=== PATIENT | male | born 1960 | race Caucasian/White ===

== ENCOUNTER 2022-10-23 10:04 | Emergency (ER) | payer BC, OTHER ==
[~2022-10-23] VITALS: Ht 177.8 cm; Wt 93.2 kg
[~2022-10-23 10:04] MED LIST: CLIN-97 PO
[2022-10-23 10:19] VITALS: BP 135/83
[2022-10-23 10:51] LABS: CLARITY,URINE CLOUDY (Clear); COLOR,URINE RED (Yellow)
[2022-10-23 10:53] LABS: UA COLLECTION TYPE CLN CATCH MIDSTREAM
[2022-10-23 11:00] LABS: RBC,URINE TNTC /HPF (0-2); WBC,URINE 50-100 /HPF (0-4)
[2022-10-23 11:01] LABS: BACTERIA,URINE FEW /HPF (Neg); MUCUS STRANDS NONE SEEN /LPF (Neg); SQUAMOUS EPITHELIAL CELL,UR FEW /LPF (FEW)
[2022-10-23] MEDS ORDERED: CEPH-585 PO (12:02)
== END 2022-10-23 12:17 | disposition home or self-care (01) ==
LOC: ER 10:04
DX: N39.0 Urinary tract infection, site not specified (principal); R31.9 Hematuria, unspecified; Z79.899 Other long term (current) drug therapy
CPT/HCPCS: 81001; 87077; 87088; 87186; 99283

== ENCOUNTER 2023-12-14 07:25 | Emergency (ER) | payer BC ==
[~2023-12-14] VITALS: Ht 177.8 cm; Wt 93.8 kg
[2023-12-14 07:29] VITALS: TEMP 99.2
[2023-12-14 08:49] LABS: ALBUMIN 3.4 G/DL (3.4-5.0); ANION GAP 10 (8-16); BLOOD UREA NITROGEN 23 MG/DL (7-18); BUN/CREATININE RATIO 18.3 (10.0-20.0); CALCIUM 8.8 MG/DL (8.5-10.1); CHLORIDE 104 MMOL/L (99-107); CREATININE 1.26 MG/DL (0.60-1.10); GLUCOSE 178 MG/DL (70-104); MAGNESIUM 2.2 MG/DL (1.5-2.4); POTASSIUM 4.2 MMOL/L (3.5-5.1); SODIUM 138 MMOL/L (135-145); TOTAL CARBON DIOXIDE 24.5 MMOL/L (24-32); eCRCL 62 ML/MIN; eGFR 58 ML/MIN
[2023-12-14] MEDS: piperacillin/tazo 3.375gm/50ml 50 ML IV ONE (08:53)
[2023-12-14] MEDS ORDERED: EMPA25TA PO (09:00)
[2023-12-14 09:05] LABS: BASOPHILS % (AUTO) 0.2 % (0-1); EOSINOPHILS # (AUTO) 0.1 X10'3 (0-0.9); EOSINOPHILS % (AUTO) 0.7 % (0-6); LYMPHOCYTES # (AUTO) 1.7 X10'3 (1.1-4.8); LYMPHOCYTES % (AUTO) 13.8 % (21-51); MEAN CORPUSCULAR HEMOGLOBIN 29.7 PG (27.0-31.0); MEAN CORPUSCULAR HGB CONC 33.3 g/dL (33.0-36.5); MEAN CORPUSCULAR VOLUME 88.9 FL (78-98); MEAN PLATELET VOLUME 8.7 FL (7.4-10.4); MONOCYTES # (AUTO) 1.2 X10'3 (0-0.9); MONOCYTES % (AUTO) 9.6 % (2-12); NEUTROPHILS # (AUTO) 9.2 X10'3 (1.8-7.7); NEUTROPHILS % (AUTO) 75.7 % (42-75); PLATELET COUNT 227 X10'3 (140-440); RED CELL DISTRIBUTION WIDTH 13.8 % (11.5-14.5); WHITE BLOOD COUNT 12.2 X10'3 (4.5-11.0)
[2023-12-14] MEDS: probenecid 500mg tablet PO ONE (09:06)
[2023-12-14 09:13] LABS: BILIRUBIN,URINE NEGATIVE (Neg); CLARITY,URINE CLEAR (Clear); COLOR,URINE YELLOW (Yellow); GLUCOSE, URINE >=1000 mg/dl (Neg); KETONES,URINE TRACE mg/dl (Neg); LEUKOCYTE ESTERASE ,URINE NEGATIVE (Neg); NITRITES, URINE NEGATIVE (Neg); OCCULT BLOOD,URINE TRACE-INTACT (Neg); PROTEIN,URINE TRACE mg/dl (Neg)
[2023-12-14 09:20] LABS: UA COLLECTION TYPE CLN CATCH MIDSTREAM
[2023-12-14 09:36] LABS: BACTERIA,URINE NONE SEEN /HPF (Neg); RBC,URINE 0-2 /HPF (0-2); SQUAMOUS EPITHELIAL CELL,UR FEW /LPF (FEW); WBC,URINE 0-4 /HPF (0-4)
[2023-12-14] MEDS ORDERED: LEVO-65 PO (11:21)
[2023-12-14 11:45] VITALS: BP 150/86; PULSE 78; RESP 14; O2SAT 100
== END 2023-12-14 11:53 | disposition home or self-care (01) ==
LOC: ER 07:26
DX: L03.115 Cellulitis of right lower limb (principal); E11.9 Type 2 diabetes mellitus without complications; Z79.899 Other long term (current) drug therapy; Z79.2 Long term (current) use of antibiotics
CPT/HCPCS: 36415; 73620; 80048; 81001; 83735; 84145; 85025; 96365; 99284; J2543; L3260

== ENCOUNTER 2023-12-20 15:35 | Inpatient (IN) | payer BC ==
[~2023-12-20] VITALS: Ht 172.7 cm; Wt 70.0 kg
[~2023-12-20 15:35] MED LIST changes: -CLIN-97 PO; +EMPA25TA PO; +LEVO-65 PO
[2023-12-20] MEDS ORDERED: iohexol 300mg/ml 100ml inj. ONE (16:41)
[2023-12-20 17:13] LABS: BASOPHILS % (AUTO) 0.3 % (0-1); EOSINOPHILS # (AUTO) 0.2 X10'3 (0-0.9); EOSINOPHILS % (AUTO) 1.4 % (0-6); HEMOGLOBIN 14.8 g/dl (14.0-17.9); LYMPHOCYTES # (AUTO) 1.5 X10'3 (1.1-4.8); LYMPHOCYTES % (AUTO) 11.9 % (21-51); MEAN CORPUSCULAR HEMOGLOBIN 30.2 PG (27.0-31.0); MEAN CORPUSCULAR HGB CONC 33.6 g/dL (33.0-36.5); MEAN CORPUSCULAR VOLUME 89.9 FL (78-98); MEAN PLATELET VOLUME 7.7 FL (7.4-10.4); MONOCYTES # (AUTO) 1.2 X10'3 (0-0.9); MONOCYTES % (AUTO) 9.6 % (2-12); NEUTROPHILS # (AUTO) 9.4 X10'3 (1.8-7.7); NEUTROPHILS % (AUTO) 76.8 % (42-75); PLATELET COUNT 323 X10'3 (140-440); RED CELL DISTRIBUTION WIDTH 13.3 % (11.5-14.5); WHITE BLOOD COUNT 12.2 X10'3 (4.5-11.0)
[2023-12-20 17:36] LABS: APTT 28 SECONDS (22-32); INR 1.1 INR; PROTHROMBIN TIME 12.1 SECONDS (9.0-12.0)
[2023-12-20 17:47] LABS: ALANINE AMINOTRANSFERASE 64 U/L (12-78); ALBUMIN 2.7 G/DL (3.4-5.0); ALBUMIN/GLOBULIN RATIO 0.5 (1.1-1.5); ALKALINE PHOSPHATASE 63 IU/L (46-116); ANION GAP 8 (8-16); ASPARTATE AMINO TRANSFERASE 38 U/L (10-37); BILIRUBIN,TOTAL 0.5 MG/DL (0.1-1.0); BLOOD UREA NITROGEN 21 MG/DL (7-18); C-REACTIVE PROTEIN 10.49 MG/DL (0.0-0.5); CALCIUM 8.6 MG/DL (8.5-10.1); CHLORIDE 101 MMOL/L (99-107); CREATININE 1.75 MG/DL (0.60-1.10); GLUCOSE 242 MG/DL (70-104); SODIUM 134 MMOL/L (135-145); TOTAL CARBON DIOXIDE 24.6 MMOL/L (24-32); eCRCL 42 ML/MIN; eGFR 40 ML/MIN
[2023-12-20] MEDS: TETanus/Pertussis (Acell)/Diphther VAC/PF (Tdap-Adult) 0.5ml syringe IMVAC ONE (18:08)
[2023-12-20] MEDS: vancomycin/NS 1 GM ADD-VANTAGE 250 ML IV STA (18:18)
[2023-12-20] MEDS: piperacillin/tazo 3.375gm/50ml 50 ML IV STA (19:00)
[2023-12-20] MEDS ORDERED: magnesium Cl slow-release 64mg tablet PO PRN (20:30)
[2023-12-20] MEDS ORDERED: magnesium hydroxide 30ml (MOM) UD suspension PO PRN (20:30)
[2023-12-20] MEDS ORDERED: ondansetron/PF 4mg/2ml inj IV PRN (20:30)
[2023-12-20] MEDS ORDERED: mag hydrox/Alum hydrox/simeth 30ml oral suspension PO PRN (20:30)
[2023-12-20] MEDS ORDERED: potassium Cl 20 mEq SR tablet PO PRN ×2 (20:30)
[2023-12-20] MEDS ORDERED: acetaminophen 325mg tablet PO PRN (20:30)
[2023-12-20] MEDS: ringers solution, lacted 1,000 ML IV SCH (20:35)
[2023-12-20] MEDS ORDERED: DEXTROSE 15 GM of carb/4 tabs (each vial/BOTTLE has 4 tablets) PO PRN ×2 (20:35)
[2023-12-20] MEDS ORDERED: glucagon, human recombinant 1mg kit SUBCUT PRN (20:35)
[2023-12-20] MEDS ORDERED: dextrose 50%-water 50ml dispensing syringe IV PRN ×2 (20:35)
[2023-12-20 20:48] LABS: HEMOGLOBIN A1C 7.3 % (4.5-6.2)
[2023-12-20] MEDS: INSULIN LISPRO 100 UNIT/ML INSULN.PEN MULTI-DOSE SQ SCH (21:00)
[2023-12-21 03:03] LABS: BASOPHILS % (AUTO) 0.4 % (0-1); EOSINOPHILS # (AUTO) 0.2 X10'3 (0-0.9); EOSINOPHILS % (AUTO) 1.9 % (0-6); HEMOGLOBIN 14.4 g/dl (14.0-17.9); LYMPHOCYTES # (AUTO) 2.1 X10'3 (1.1-4.8); LYMPHOCYTES % (AUTO) 17.2 % (21-51); MEAN CORPUSCULAR HGB CONC 33.5 g/dL (33.0-36.5); MEAN CORPUSCULAR VOLUME 89.4 FL (78-98); MEAN PLATELET VOLUME 7.6 FL (7.4-10.4); MONOCYTES # (AUTO) 1.1 X10'3 (0-0.9); MONOCYTES % (AUTO) 9.2 % (2-12); NEUTROPHILS # (AUTO) 8.6 X10'3 (1.8-7.7); NEUTROPHILS % (AUTO) 71.3 % (42-75); PLATELET COUNT 296 X10'3 (140-440); RED BLOOD COUNT 4.81 X10'6 (4.70-6.10); RED CELL DISTRIBUTION WIDTH 13.3 % (11.5-14.5); WHITE BLOOD COUNT 12.1 X10'3 (4.5-11.0)
[2023-12-21 03:19] LABS: ALANINE AMINOTRANSFERASE 60 U/L (12-78); ALBUMIN 2.5 G/DL (3.4-5.0); ALBUMIN/GLOBULIN RATIO 0.5 (1.1-1.5); ALKALINE PHOSPHATASE 60 IU/L (46-116); ANION GAP 10 (8-16); ASPARTATE AMINO TRANSFERASE 34 U/L (10-37); BILIRUBIN,TOTAL 0.7 MG/DL (0.1-1.0); BLOOD UREA NITROGEN 18 MG/DL (7-18); BUN/CREATININE RATIO 15.7 (10.0-20.0); CALCIUM 8.5 MG/DL (8.5-10.1); CHLORIDE 104 MMOL/L (99-107); CHOLESTEROL 184 MG/DL (0-200); CREATININE 1.15 MG/DL (0.60-1.10); GLUCOSE 125 MG/DL (70-104); HDL CHOLESTEROL 30 MG/DL (35-60); MAGNESIUM 2.1 MG/DL (1.5-2.4); PHOSPHORUS 3.3 MG/DL (2.3-4.5); POTASSIUM 3.7 MMOL/L (3.5-5.1); SODIUM 137 MMOL/L (135-145); TOTAL CARBON DIOXIDE 23.5 MMOL/L (24-32); TOTAL PROTEIN 7.4 G/DL (6.4-8.2); eCRCL 64 ML/MIN; eGFR 64 ML/MIN
[2023-12-21 03:20] LABS: CHOL/HDL RATIO 6.1 (0.00-4.99); LDL CHOLESTEROL 130 MG/DL (50-100); TRIGLYCERIDES 98 MG/DL (20-135)
[2023-12-21] MEDS: piperacillin/tazo 3.375gm/50ml 50 ML IV SCH (04:37)
[2023-12-21] MEDS ORDERED: vancomycin/NS 1 GM ADD-VANTAGE 250 ML X 1 DOSE IV SCH (06:00)
[2023-12-21] MEDS: vancomycin/NS 1 GM ADD-VANTAGE 250 ML X 1 DOSE IV SCH (07:00)
[2023-12-21 08:45] VITALS: BP 145/87; PULSE 67; RESP 16; TEMP 97.4; O2SAT 97
[2023-12-21] MEDS: docusate sod 100mg capsule PO SCH (09:09)
[2023-12-21] MEDS: heparin, porcine 5000 units/ml vial SQ SCH (09:09)
[2023-12-21] MEDS ORDERED: LOSA-415 PO (09:44)
[2023-12-21 10:00] VITALS: BP 145/87; PULSE 67; RESP 16; TEMP 96.8; O2SAT 97
[2023-12-21 18:00] VITALS: BP 127/72; PULSE 69; RESP 16; TEMP 98.6; O2SAT 95
[2023-12-21 22:00] VITALS: BP 119/61; PULSE 74; RESP 16; TEMP 98.7; O2SAT 96
[2023-12-22 05:00] VITALS: BP 136/80; PULSE 85; RESP 16; TEMP 98.6; O2SAT 98
[2023-12-22 06:56] LABS: BASOPHILS % (AUTO) 0.4 % (0-1); EOSINOPHILS # (AUTO) 0.2 X10'3 (0-0.9); EOSINOPHILS % (AUTO) 2.1 % (0-6); HEMATOCRIT 41.5 % (42.0-52.0); LYMPHOCYTES # (AUTO) 1.9 X10'3 (1.1-4.8); MEAN CORPUSCULAR HEMOGLOBIN 30.1 PG (27.0-31.0); MEAN CORPUSCULAR HGB CONC 33.7 g/dL (33.0-36.5); MEAN CORPUSCULAR VOLUME 89.2 FL (78-98); MEAN PLATELET VOLUME 7.7 FL (7.4-10.4); MONOCYTES % (AUTO) 9.6 % (2-12); NEUTROPHILS # (AUTO) 7.2 X10'3 (1.8-7.7); NEUTROPHILS % (AUTO) 69.9 % (42-75); PLATELET COUNT 315 X10'3 (140-440); RED BLOOD COUNT 4.65 X10'6 (4.70-6.10); RED CELL DISTRIBUTION WIDTH 13.2 % (11.5-14.5); WHITE BLOOD COUNT 10.3 X10'3 (4.5-11.0)
[2023-12-22 07:08] LABS: ALANINE AMINOTRANSFERASE 56 U/L (12-78); ALBUMIN 2.4 G/DL (3.4-5.0); ALBUMIN/GLOBULIN RATIO 0.5 (1.1-1.5); ALKALINE PHOSPHATASE 54 IU/L (46-116); ANION GAP 6 (8-16); ASPARTATE AMINO TRANSFERASE 37 U/L (10-37); BILIRUBIN,TOTAL 0.7 MG/DL (0.1-1.0); BLOOD UREA NITROGEN 14 MG/DL (7-18); BUN/CREATININE RATIO 11.3 (10.0-20.0); CALCIUM 8.7 MG/DL (8.5-10.1); CHLORIDE 103 MMOL/L (99-107); CREATININE 1.24 MG/DL (0.60-1.10); GLUCOSE 124 MG/DL (70-104); MAGNESIUM 2.4 MG/DL (1.5-2.4); PHOSPHORUS 3.3 MG/DL (2.3-4.5); SODIUM 135 MMOL/L (135-145); TOTAL CARBON DIOXIDE 26.1 MMOL/L (24-32); TOTAL PROTEIN 7.4 G/DL (6.4-8.2); eCRCL 59 ML/MIN; eGFR 59 ML/MIN
[2023-12-22] MEDS: VANCOMYCIN LEVEL IV ONE (07:38)
[2023-12-22] MEDS: atorvastatin 20mg tablet PO SCH (07:40)
[2023-12-22 08:15] VITALS: RESP 18; O2SAT 95
[2023-12-22 10:00] VITALS: BP 135/85; PULSE 95; RESP 14; TEMP 97.4; O2SAT 94
[2023-12-22] MEDS ORDERED: LACT1CAP76 PO (11:13)
[2023-12-22] MEDS ORDERED: ATOR40TA71 PO (11:13)
[2023-12-22] MEDS ORDERED: AMOX-580 PO (11:13)
[2023-12-22] MEDS ORDERED: DOXY-224 PO (11:13)
[2023-12-22] MEDS ORDERED: VANCOmycin 1250MG/NS 250ml Bag 250 ML IV SCH (20:00)
[2023-12-24] MEDS ORDERED: VANCOMYCIN LEVEL IV ONE (07:30)
== END 2023-12-22 12:20 | disposition home or self-care (01) | DRG 602 ==
LOC: ER 15:35 → ED HOLD 20:33 → ORTHO 4S 12-21 08:25
PROVIDERS: ADMIT Internal Medicine Critical Care Medicine; ATTEND Family Medicine
DX: L03.115 Cellulitis of right lower limb (principal); N17.0 Acute kidney failure with tubular necrosis; I10 Essential (primary) hypertension; E11.9 Type 2 diabetes mellitus without complications; S91.331A Puncture wound without foreign body, right foot, initial encounter; X58.XXXA Exposure to other specified factors, initial encounter; Y93.89 Activity, other specified; Z79.899 Other long term (current) drug therapy; Y92.89 Other specified places as the place of occurrence of the external cause; Y99.8 Other external cause status
CPT/HCPCS: 36415; 73701; 80053; 80061; 80202; 82948; 83036; 83605; 83735; 84100; 84145; 85025; 85610; 85651; 85730; 86140; 87040; 87081; 90715; 99291; G0378; J1644; J1815; J2543; J3370; J7040; J7120; Q9967

== ENCOUNTER 2023-12-31 10:27 | Inpatient (IN) | payer BC ==
[~2023-12-31] VITALS: Ht 177.8 cm; Wt 93.6 kg
[~2023-12-31 10:27] MED LIST changes: +AMOX-580 PO; +ATOR40TA71 PO; +DOXY-224 PO; +LACT1CAP76 PO; -LEVO-65 PO; +LOSA-415 PO
[2023-12-31 11:42] LABS: ALBUMIN 3.3 G/DL (3.4-5.0); ANION GAP 7 (8-16); BLOOD UREA NITROGEN 18 MG/DL (7-18); BUN/CREATININE RATIO 14.3 (10.0-20.0); CALCIUM 9.3 MG/DL (8.5-10.1); CHLORIDE 103 MMOL/L (99-107); CREATININE 1.26 MG/DL (0.60-1.10); GLUCOSE 147 MG/DL (70-104); POTASSIUM 4.1 MMOL/L (3.5-5.1); SODIUM 137 MMOL/L (135-145); TOTAL CARBON DIOXIDE 27.5 MMOL/L (24-32); eCRCL 62 ML/MIN; eGFR 58 ML/MIN
[2023-12-31] MEDS ORDERED: iohexol 300mg/ml 100ml inj. ONE (12:34)
[2023-12-31 13:13] LABS: BASOPHILS % 0 % (0-2); EOSINOPHILS # (AUTO) 0.3 X10'3 (0-0.9); EOSINOPHILS % (AUTO) 2 % (0-5); HEMOGLOBIN 15.9 G/DL (12.5-16.3); LYMPHOCYTES # (AUTO) 2.3 X10'3 (0.6-4.1); LYMPHOCYTES % 18 % (24-44); MEAN CORPUSCULAR HEMOGLOBIN 29.5 PG (27-31.2); MEAN CORPUSCULAR HGB CONC 33.2 % (32-36); MEAN CORPUSCULAR VOLUME 88.8 FL (81-97); MONOCYTES % 8 % (0-12); NEUTROPHILS # (AUTO) 9.1 X10'3 (>=1.4); PLATELET COUNT 358 X10'3 (130-400); RED CELL DISTRIBUTION WIDTH 13.5 % (11-16); SEGMENTED NEUTROPHILS % 72 % (36-66); WHITE BLOOD COUNT 12.7 X10'3 (4.5-11.0)
[2023-12-31] MEDS ORDERED: magnesium sulf-water 2g/50mL 50 ML IV PRN (15:40)
[2023-12-31] MEDS ORDERED: HYDROcodone/acetaminophen 5mg/325mg tablet PO PRN (15:40)
[2023-12-31] MEDS ORDERED: morphine 2 MG/ML inj. syringe IV PRN (15:40)
[2023-12-31] MEDS ORDERED: potassium Cl 40MEQ/1/2NS 520ml 520 ML IV PRN (15:40)
[2023-12-31] MEDS ORDERED: ondansetron/PF 4mg/2ml inj IV PRN (15:40)
[2023-12-31] MEDS ORDERED: potassium Cl 20 mEq SR tablet PO PRN ×2 (15:40)
[2023-12-31] MEDS ORDERED: magnesium Cl slow-release 64mg tablet PO PRN (15:40)
[2023-12-31] MEDS ORDERED: magnesium sulf-water 4G/100mL 100 ML IV PRN (15:40)
[2023-12-31] MEDS ORDERED: acetaminophen 325mg tablet PO PRN (15:40)
[2023-12-31] MEDS ORDERED: cefepime 2g/NS 100ml ADVANTAGE 100 ML IV SCH (16:00)
[2023-12-31] MEDS: cefepime 2g/NS 100ml ADVANTAGE 100 ML IV ONE ×2 (16:00→18:52)
[2023-12-31] MEDS: vancomycin/NS 1 GM ADD-VANTAGE 250 ML IV ONE (16:29)
[2023-12-31] MEDS: normal saline 1000ml 1,000 ML IV SCH (16:30)
[2023-12-31] MEDS ORDERED: glucagon, human recombinant 1mg kit SUBCUT PRN (17:00)
[2023-12-31] MEDS ORDERED: dextrose 50%-water 50ml dispensing syringe IV PRN ×2 (17:00)
[2023-12-31] MEDS: INSULIN LISPRO 100 UNIT/ML INSULN.PEN MULTI-DOSE SQ SCH (17:00)
[2023-12-31] MEDS ORDERED: DEXTROSE 15 GM of carb/4 tabs (each vial/BOTTLE has 4 tablets) PO PRN ×2 (17:00)
[2023-12-31 17:47] VITALS: RESP 18; O2SAT 97
[2023-12-31] MEDS: K and/or MAG REPLACEMENT MC SCH (20:00)
[2023-12-31] MEDS: cefepime 1GM/NS ADD-VANTAGE 100 ML IV SCH (20:05)
[2023-12-31 21:33] VITALS: RESP 16; O2SAT 98
[2023-12-31 21:41] VITALS: BP 156/88; PULSE 82; RESP 18; TEMP 97.3; O2SAT 98
[2023-12-31 22:00] VITALS: BP 127/75; PULSE 80; RESP 16; TEMP 98.3; O2SAT 95
[2024-01-01] VITALS (17 sets, daily range): BP systolic 95–171; BP diastolic 58–93; PULSE 65–87; RESP 10–16; TEMP 96.9–98; O2SAT 94–100
[2024-01-01] MEDS: vancomycin/NS 1 GM ADD-VANTAGE 250 ML IV SCH (03:56)
[2024-01-01 04:27] LABS: BASOPHILS % (AUTO) 0.3 % (0-1); EOSINOPHILS # (AUTO) 0.3 X10'3 (0-0.9); EOSINOPHILS % (AUTO) 2.7 % (0-6); HEMATOCRIT 41.6 % (42.0-52.0); HEMOGLOBIN 14.2 g/dl (14.0-17.9); LYMPHOCYTES # (AUTO) 2.5 X10'3 (1.1-4.8); LYMPHOCYTES % (AUTO) 24.4 % (21-51); MEAN CORPUSCULAR HEMOGLOBIN 30.2 PG (27.0-31.0); MEAN CORPUSCULAR HGB CONC 34.1 g/dL (33.0-36.5); MEAN CORPUSCULAR VOLUME 88.7 FL (78-98); MEAN PLATELET VOLUME 7.9 FL (7.4-10.4); MONOCYTES # (AUTO) 0.9 X10'3 (0-0.9); MONOCYTES % (AUTO) 8.4 % (2-12); NEUTROPHILS # (AUTO) 6.7 X10'3 (1.8-7.7); NEUTROPHILS % (AUTO) 64.2 % (42-75); PLATELET COUNT 295 X10'3 (140-440); RED BLOOD COUNT 4.69 X10'6 (4.70-6.10); RED CELL DISTRIBUTION WIDTH 13.3 % (11.5-14.5); WHITE BLOOD COUNT 10.4 X10'3 (4.5-11.0)
[2024-01-01 04:41] LABS: APTT 28 SECONDS (22-32); INR 1.2 INR
[2024-01-01 04:43] LABS: ALBUMIN 2.7 G/DL (3.4-5.0); ANION GAP 6 (8-16); BLOOD UREA NITROGEN 20 MG/DL (7-18); BUN/CREATININE RATIO 17.9 (10.0-20.0); CALCIUM 8.6 MG/DL (8.5-10.1); CHLORIDE 106 MMOL/L (99-107); CREATININE 1.12 MG/DL (0.60-1.10); GLUCOSE 142 MG/DL (70-104); MAGNESIUM 1.9 MG/DL (1.5-2.4); POTASSIUM 4.1 MMOL/L (3.5-5.1); SODIUM 138 MMOL/L (135-145); TOTAL CARBON DIOXIDE 26.3 MMOL/L (24-32); eCRCL 70 ML/MIN; eGFR 66 ML/MIN
[2024-01-01] MEDS ORDERED: sevoflurane 250ml liquid IH ONE (13:39)
[2024-01-01] MEDS ORDERED: fentaNYL/PF 50MCG/1 ML 2ML syringe ONE (13:48)
[2024-01-01] MEDS ORDERED: HYDROmorphone/PF 0.2 MG/ML SYRINGE IV PRN ×2 (14:25)
[2024-01-01] MEDS: ringers solution, lacted 1,000 ML IV SCH (14:25)
[2024-01-01] MEDS ORDERED: ondansetron/PF 4mg/2ml inj IV PRN (14:25)
[2024-01-01] MEDS ORDERED: proCHLORperazine 10 MG/2 ml inj IV PRN (14:25)
[2024-01-01] MEDS ORDERED: fentaNYL/PF 50MCG/1 ML 2ML syringe IV PRN ×2 (14:25)
[2024-01-01] MEDS: JUVEN Smoothie Arginine/Glut./Ca2+Bmb (Juven 19.3pkt) 240ml cup PO SCH (18:00)
[2024-01-02] MEDS: VANCOMYCIN LEVEL IV ONE (03:30)
[2024-01-02 03:41] LABS: BASOPHILS # (AUTO) 0.1 X10'3 (0-0.2); BASOPHILS % (AUTO) 0.7 % (0-1); EOSINOPHILS # (AUTO) 0.3 X10'3 (0-0.9); EOSINOPHILS % (AUTO) 2.9 % (0-6); HEMATOCRIT 41.7 % (42.0-52.0); HEMOGLOBIN 14.3 g/dl (14.0-17.9); LYMPHOCYTES % (AUTO) 21.3 % (21-51); MEAN CORPUSCULAR HEMOGLOBIN 30.6 PG (27.0-31.0); MEAN CORPUSCULAR HGB CONC 34.3 g/dL (33.0-36.5); MEAN CORPUSCULAR VOLUME 89.3 FL (78-98); MEAN PLATELET VOLUME 7.7 FL (7.4-10.4); MONOCYTES # (AUTO) 0.8 X10'3 (0-0.9); MONOCYTES % (AUTO) 8.3 % (2-12); NEUTROPHILS # (AUTO) 6.4 X10'3 (1.8-7.7); NEUTROPHILS % (AUTO) 66.8 % (42-75); PLATELET COUNT 287 X10'3 (140-440); RED BLOOD COUNT 4.67 X10'6 (4.70-6.10); RED CELL DISTRIBUTION WIDTH 13.4 % (11.5-14.5); WHITE BLOOD COUNT 9.6 X10'3 (4.5-11.0)
[2024-01-02 03:53] LABS: ALBUMIN 2.7 G/DL (3.4-5.0); ANION GAP 4 (8-16); BLOOD UREA NITROGEN 20 MG/DL (7-18); BUN/CREATININE RATIO 24.1 (10.0-20.0); CALCIUM 8.7 MG/DL (8.5-10.1); CHLORIDE 105 MMOL/L (99-107); CREATININE 0.83 MG/DL (0.60-1.10); GLUCOSE 121 MG/DL (70-104); MAGNESIUM 1.8 MG/DL (1.5-2.4); POTASSIUM 3.8 MMOL/L (3.5-5.1); SODIUM 136 MMOL/L (135-145); TOTAL CARBON DIOXIDE 26.8 MMOL/L (24-32); VANCOMYCIN,TROUGH 11.7 ug/mL (10.0-20.0); eCRCL 94 ML/MIN; eGFR > 90 ML/MIN
[2024-01-02] MEDS: VANCOmycin 1250MG/NS 250ml Bag 250 ML IV SCH (04:11)
[2024-01-02 06:00] VITALS: BP 155/87; PULSE 72; RESP 16; TEMP 98.4; O2SAT 98
[2024-01-02 11:00] VITALS: BP 162/85; PULSE 79; RESP 14; TEMP 97.6; O2SAT 97
[2024-01-02 19:30] VITALS: BP 158/82; PULSE 78; RESP 16; TEMP 97.8; O2SAT 93
[2024-01-02 20:00] VITALS: RESP 14; O2SAT 98
[2024-01-02 22:00] VITALS: BP 154/83; PULSE 75; RESP 14; TEMP 97.5; O2SAT 99
[2024-01-02] MEDS ORDERED: losartan 25mg tablet PO PRN (22:05)
[2024-01-03 04:33] LABS: BASOPHILS % (AUTO) 0.4 % (0-1); EOSINOPHILS # (AUTO) 0.3 X10'3 (0-0.9); HEMATOCRIT 43.2 % (42.0-52.0); HEMOGLOBIN 14.8 g/dl (14.0-17.9); LYMPHOCYTES # (AUTO) 2.6 X10'3 (1.1-4.8); LYMPHOCYTES % (AUTO) 27.5 % (21-51); MEAN CORPUSCULAR HEMOGLOBIN 30.4 PG (27.0-31.0); MEAN CORPUSCULAR HGB CONC 34.3 g/dL (33.0-36.5); MEAN CORPUSCULAR VOLUME 88.8 FL (78-98); MEAN PLATELET VOLUME 7.8 FL (7.4-10.4); MONOCYTES # (AUTO) 0.8 X10'3 (0-0.9); MONOCYTES % (AUTO) 8.1 % (2-12); NEUTROPHILS # (AUTO) 5.8 X10'3 (1.8-7.7); PLATELET COUNT 298 X10'3 (140-440); RED BLOOD COUNT 4.86 X10'6 (4.70-6.10); RED CELL DISTRIBUTION WIDTH 13.6 % (11.5-14.5); WHITE BLOOD COUNT 9.5 X10'3 (4.5-11.0)
[2024-01-03 04:46] LABS: ALBUMIN 2.6 G/DL (3.4-5.0); ANION GAP 8 (8-16); BLOOD UREA NITROGEN 16 MG/DL (7-18); BUN/CREATININE RATIO 19.3 (10.0-20.0); CALCIUM 8.8 MG/DL (8.5-10.1); CHLORIDE 105 MMOL/L (99-107); CREATININE 0.83 MG/DL (0.60-1.10); GLUCOSE 109 MG/DL (70-104); MAGNESIUM 1.9 MG/DL (1.5-2.4); POTASSIUM 3.8 MMOL/L (3.5-5.1); SODIUM 137 MMOL/L (135-145); TOTAL CARBON DIOXIDE 23.8 MMOL/L (24-32); eCRCL 94 ML/MIN; eGFR > 90 ML/MIN
[2024-01-03 06:00] VITALS: BP 126/75; PULSE 77; RESP 14; TEMP 98.7; O2SAT 97
[2024-01-03 10:00] VITALS: BP 135/82; PULSE 90; RESP 16; TEMP 97; O2SAT 98
[2024-01-03] MEDS: VANCOMYCIN LEVEL IV ONE (16:05)
[2024-01-03] MEDS: cefepime 1GM/NS ADD-VANTAGE 100 ML IV SCH (16:13)
[2024-01-03 18:00] VITALS: BP 155/89; PULSE 84; RESP 16; TEMP 98.2; O2SAT 97
[2024-01-03 20:00] VITALS: RESP 18; O2SAT 96
[2024-01-03 22:00] VITALS: BP 150/83; PULSE 70; RESP 18; TEMP 97.6; O2SAT 98
[2024-01-04 04:57] LABS: BASOPHILS % (AUTO) 0.4 % (0-1); EOSINOPHILS # (AUTO) 0.2 X10'3 (0-0.9); EOSINOPHILS % (AUTO) 2.4 % (0-6); HEMATOCRIT 42.8 % (42.0-52.0); HEMOGLOBIN 14.4 g/dl (14.0-17.9); LYMPHOCYTES # (AUTO) 2.4 X10'3 (1.1-4.8); MEAN CORPUSCULAR HEMOGLOBIN 29.7 PG (27.0-31.0); MEAN CORPUSCULAR HGB CONC 33.6 g/dL (33.0-36.5); MEAN CORPUSCULAR VOLUME 88.4 FL (78-98); MEAN PLATELET VOLUME 7.8 FL (7.4-10.4); MONOCYTES # (AUTO) 0.8 X10'3 (0-0.9); MONOCYTES % (AUTO) 8.7 % (2-12); NEUTROPHILS # (AUTO) 6.1 X10'3 (1.8-7.7); NEUTROPHILS % (AUTO) 63.5 % (42-75); PLATELET COUNT 287 X10'3 (140-440); RED BLOOD COUNT 4.85 X10'6 (4.70-6.10); RED CELL DISTRIBUTION WIDTH 13.3 % (11.5-14.5); WHITE BLOOD COUNT 9.6 X10'3 (4.5-11.0)
[2024-01-04 05:07] LABS: ALBUMIN 2.5 G/DL (3.4-5.0); ANION GAP 7 (8-16); BLOOD UREA NITROGEN 16 MG/DL (7-18); BUN/CREATININE RATIO 18.8 (10.0-20.0); CALCIUM 8.3 MG/DL (8.5-10.1); CHLORIDE 107 MMOL/L (99-107); CREATININE 0.85 MG/DL (0.60-1.10); GLUCOSE 106 MG/DL (70-104); MAGNESIUM 1.8 MG/DL (1.5-2.4); POTASSIUM 3.6 MMOL/L (3.5-5.1); SODIUM 138 MMOL/L (135-145); TOTAL CARBON DIOXIDE 24.1 MMOL/L (24-32); eCRCL 92 ML/MIN; eGFR > 90 ML/MIN
[2024-01-04 06:47] VITALS: BP 139/84; PULSE 75; RESP 18; TEMP 97.7; O2SAT 98
[2024-01-04 11:05] VITALS: BP 123/80; PULSE 73; RESP 16; TEMP 97.1; O2SAT 100
[2024-01-04 18:00] VITALS: BP 130/73; PULSE 69; RESP 16; TEMP 97.7; O2SAT 96
[2024-01-04 20:00] VITALS: RESP 16; O2SAT 96
[2024-01-04 22:00] VITALS: BP 133/75; PULSE 75; RESP 20; TEMP 97.9; O2SAT 97
[2024-01-05 05:59] LABS: BASOPHILS # (AUTO) 0.1 X10'3 (0-0.2); BASOPHILS % (AUTO) 0.5 % (0-1); EOSINOPHILS # (AUTO) 0.3 X10'3 (0-0.9); EOSINOPHILS % (AUTO) 2.7 % (0-6); HEMATOCRIT 44.7 % (42.0-52.0); HEMOGLOBIN 15.2 g/dl (14.0-17.9); LYMPHOCYTES # (AUTO) 2.6 X10'3 (1.1-4.8); LYMPHOCYTES % (AUTO) 25.5 % (21-51); MEAN CORPUSCULAR HEMOGLOBIN 30.4 PG (27.0-31.0); MEAN CORPUSCULAR HGB CONC 34.1 g/dL (33.0-36.5); MEAN CORPUSCULAR VOLUME 89.1 FL (78-98); MEAN PLATELET VOLUME 8.6 FL (7.4-10.4); MONOCYTES # (AUTO) 0.8 X10'3 (0-0.9); MONOCYTES % (AUTO) 8.4 % (2-12); NEUTROPHILS # (AUTO) 6.3 X10'3 (1.8-7.7); NEUTROPHILS % (AUTO) 62.9 % (42-75); PLATELET COUNT 304 X10'3 (140-440); RED BLOOD COUNT 5.02 X10'6 (4.70-6.10); RED CELL DISTRIBUTION WIDTH 13.5 % (11.5-14.5)
[2024-01-05 06:16] LABS: ALBUMIN 2.7 G/DL (3.4-5.0); ANION GAP 9 (8-16); BLOOD UREA NITROGEN 14 MG/DL (7-18); BUN/CREATININE RATIO 17.7 (10.0-20.0); CALCIUM 8.9 MG/DL (8.5-10.1); CHLORIDE 106 MMOL/L (99-107); CREATININE 0.79 MG/DL (0.60-1.10); GLUCOSE 111 MG/DL (70-104); POTASSIUM 3.8 MMOL/L (3.5-5.1); SODIUM 138 MMOL/L (135-145); TOTAL CARBON DIOXIDE 22.9 MMOL/L (24-32); eCRCL 99 ML/MIN; eGFR > 90 ML/MIN
[2024-01-05 06:36] VITALS: BP 156/92; PULSE 78; RESP 18; TEMP 96.3; O2SAT 98
[2024-01-05] MEDS: EMPAGLIFLOZIN 25 MG TABLET PO SCH (07:45)
[2024-01-05] MEDS: lactobacillus rhamnosus 10,000 MMU CELLS/CAPSULE PO SCH (07:45)
[2024-01-05] MEDS: atorvastatin 20mg tablet PO SCH (07:45)
[2024-01-05] MEDS ORDERED: losartan 25mg tablet PO SCH (08:00)
[2024-01-05 10:17] VITALS: BP 143/82; PULSE 77; RESP 15; TEMP 98; O2SAT 98
[2024-01-05] MEDS ORDERED: LEVO-65 PO (10:42)
[2024-01-05] MEDS ORDERED: SULF1TAB49 PO (10:42)
[2024-01-05] MEDS ORDERED: VANCOMYCIN LEVEL IV ONE (15:30)
== END 2024-01-05 13:40 | disposition home or self-care (01) | DRG 989 ==
LOC: ER 10:28 → ED HOLD 15:42 → SUR 3N 17:10
PROVIDERS: ADMIT Internal Medicine; ATTEND Internal Medicine
PROC: B42F1ZZ Computerized Tomography (CT Scan) of Right Lower Extremity Arteries using Low Osmolar Contrast (ICD-10-PCS; 2023-12-31)
PROC: 0MBS0ZZ Excision of Right Foot Bursa and Ligament, Open Approach (ICD-10-PCS; principal; 2024-01-01 13:44)
DX: L02.611 Cutaneous abscess of right foot (principal); E11.40 Type 2 diabetes mellitus with diabetic neuropathy, unspecified; E78.5 Hyperlipidemia, unspecified; I10 Essential (primary) hypertension; Z79.899 Other long term (current) drug therapy
CPT/HCPCS: 99285; Z7506; 36415; 71045; 80048; 80202; 82948; 83605; 83735; 84484; 85025; 85610; 85730; 87040; 87070; 87075; 87081; 93005; 97116; 97161; A4618; A6222; A6223; A6266; A6446; A6449; A7000; G0378; J0692; J1815; J2704; J3010; J3370; J3490; J7030; J7042; J7120; Q9967